=== PATIENT | female | born 1980 | race Two or more races ===

== ENCOUNTER 2019-04-26 16:40 | Emergency (ER) | payer SELFPAY ==
[2019-04-26 17:02] VITALS: BP 114/75
--- NOTE | 2019-04-26 17:39 | UC ---
Abdominal Pain Female HPI - HPI Summary HPI Summary: 38 year old female presents with abdominal pain, right sided, radiating to spine. Patient has been seen in past with similar symptoms in 2012- was dx'd with ARF with creatinine of >4, patient states she required dialysis at that time. Notes diffuse fatigue, weakness x weeks, right sided headache. + nausea, decreased appetite. Intermittent bouts of chest pain, short lived, none currently/ recently. No medications typically, but took meprazole last night. continues to have RUQ pain only, no other abdominal pain, no pain with defecation. RUQ radiates to back/ flank area, feels like "blaire" going up spine. + tremors starting several weeks ago, intermittent, worse in the AM and when fatigued, b/l hands. no other PMH. Has seen providers for abdominal pain in past, but without official diagnosis. Was sent to ER today for evaluation from her PCP due to stools. - History of Current Complaint Chief Complaint: UCGeneralIllness Stated Complaint: RIGHT SIDE PAIN Time Seen by Provider: 04/26/19 17:17 Hx Obtained From: Patient, Family/Learning And Development Specialist - friend Hx Last Menstrual Period: 2 WEEKS AGO ?: No Onset/Duration: Sudden Onset, Lasting Weeks, Still Present Severity Initially: Moderate Severity Currently: Moderate Pain Intensity: 8 Pain Scale Used: 0-10 Numeric Location: Discrete At: RUQ Radiates: Yes Radiates to: Back, Flank - right Character: Colicy, Cramping, Sharp Aggravating Factor(s): Food Alleviating Factor(s): Nothing Associated Signs and Symptoms: Positive: Chest Pain, Back Pain, Blood in Stool - black stools, Nausea, Diarrhea. Negative: Diaphoresis, Fever, Cough, Constipation, Urinary Symptoms, Decreased Appetite, Vaginal Discharge, Vomiting Allergies/Adverse Reactions: Allergies Allergy/AdvReac Type Severity Reaction Status Date / Time Penicillins Allergy Severe Rash Verified 04/26/19 17:03 Home Medications: Home Medications Omeprazole 20 mg PO BID 04/26/19 [History Confirmed 04/26/19] PMH/Surg Hx/FS Hx/Imm Hx Previously Healthy: No - h/o renal failure 2012 - Surgical History Surgical History: Unable to Obtain/Confirm - Family History Known Family History: Positive: Non-Contributory - Social History Alcohol Use: Occasionally Substance Use Type: None Smoking Status (MU): Never Smoked Tobacco Review of Systems All Other Systems Reviewed And Are Negative: Yes Constitutional: Positive: Fatigue Cardiovascular: Positive: Chest Pain - intermittent, none currently. Motor: Positive: Weakness Musculoskeletal: Positive: Myalgia Neurological: Positive: Headache Is Patient Immunocompromised?: No Physical Exam Triage Information Reviewed: Yes Appearance: Well-Appearing, No Pain Distress, Well-Nourished Vital Signs: Initial Vital Signs Temp 98.3 F 04/26/19 16:51 Pulse 82 04/26/19 16:51 Resp 16 04/26/19 16:51 BP 114/75 04/26/19 16:51 Pulse Ox 99 04/26/19 16:51 Vital Signs Reviewed: Yes Eyes: Positive: Conjunctiva Clear ENT: Positive: Hearing grossly normal Neck: Positive: Supple, Nontender, No Lymphadenopathy Abdomen Description: Positive: No Organomegaly, Soft, CVA Tenderness (R), Other : - Rright flank pain. Negative: CVA Tenderness (L), Distended, Guarding, Splenomegaly Psychological Exam: Normal Skin Exam: Normal Abd Pain Female Course/Dx - Course Course Of Treatment: 38 year old femae with long standing history of RUQ pain, worse over past few weeks with tarry stools x weeks, fatigue. Concerned for GI bleed, in past had elevated creatinine with similar symptoms- Patient needs blood work, possible imaging tonight, she was sent to ER for further evaluation. Offered ambulance, patient refused. ER called with report - Differential Dx/Diagnosis Differential Diagnosis: Abdominal Aortic Aneurysm, Appendicitis, Urinary Tract Infection Provider Diagnosis: Abdominal pain Discharge - Sign-Out/Discharge Documenting (check all that apply): Patient Departure All imaging exams completed and their final reports reviewed: No Studies - Discharge Plan Condition: Good Disposition: HOME-RECOMMEND TO ED Patient Education Materials: Acute Abdominal Pain (ED) Referrals: Madonna Chapin PA [Primary Care Provider] - Additional Instructions: - Please go to ER due to abdominal pain with history of renal failure in past - Billing Disposition and Condition Condition: GOOD Disposition: Home-Recommend to ED
== END 2019-04-26 17:55 | disposition home health service (06) ==
LOC: UCEAST 16:40
DX: R10.9 Unspecified abdominal pain (principal); R53.83 Other fatigue; R51 Headache; Z88.0 Allergy status to penicillin
CPT/HCPCS: 99202; G0463

== ENCOUNTER → 2019-04-26 18:05 | Emergency (ER) | payer SELFPAY ==
[~2019-04-26 18:05] MED LIST: Ondansetron INJ* 2 MG/ML VIAL IV ONE; Pantoprazole IV* 40 MG IV ONE
--- NOTE | 2019-04-26 18:42 | ED ---
GI/ HPI - HPI Summary HPI Summary: 38-year-old female presents with black stool for past 3 days. She states that she has had right upper quadrant pain for the past couple years. She was evaluated in 2012 for this and admitted for renal failure. She states the pain has continued since. She has not been using ibuprofen. She does drink alcohol occasionally. She has never had a history of blood stool. States that her stool have been a little bit loose. Denies any recent travel. admits to nausea and no vomiting. Was suppose to be on Prilosec but stopped taking it but did take a dose two days ago. no urinary symptoms. pain does radiate to back and right shoulder. admits to fatigue. no chest pain or sob. no urinary symptoms. Has no primary. - History of Current Complaint Chief Complaint: EDAbdPain Time Seen by Provider: 04/26/19 18:24 Stated Complaint: ABD PAIN PER PT Hx Last Menstrual Period: 2 WEEKS AGO Pain Intensity: 8 - Allergy/Home Medications Allergies/Adverse Reactions: Allergies Allergy/AdvReac Type Severity Reaction Status Date / Time Penicillins Allergy Severe Rash Verified 04/26/19 17:03 PMH/Surg Hx/FS Hx/Imm Hx Endocrine/Hematology History: Denies: Hx Anticoagulant Therapy Respiratory History: Reports: Hx Asthma Infectious Disease History: No Infectious Disease History: Denies: Traveled Outside the [place] in Last 30 Days - Family History Known Family History: Positive: Non-Contributory - Social History Alcohol Use: Occasionally Substance Use Type: Reports: None Smoking Status (MU): Never Smoked Tobacco Review of Systems Negative: Fever Negative: Chest Pain Negative: Shortness Of Breath Positive: Abdominal Pain, Nausea, Other - dark stool All Other Systems Reviewed And Are Negative: Yes Physical Exam Triage Information Reviewed: Yes Vital Signs On Initial Exam: Initial Vitals Temp Pulse Resp BP Pulse Ox 98.3 F 69 15 140/86 98 04/26/19 18:07 04/26/19 18:07 04/26/19 18:07 04/26/19 18:07 04/26/19 18:07 Vital Signs Reviewed: Yes Appearance: Positive: Well-Appearing Skin: Positive: Warm, Dry Head/Face: Positive: Normal Head/Face Inspection Eyes: Positive: Normal, Conjunctiva Clear ENT: Positive: Pharynx normal Respiratory/Lung Sounds: Positive: Clear to Auscultation, Breath Sounds Present Cardiovascular: Positive: Normal, RRR Abdomen Description: Positive: Soft, Other: - tenderness in RUQ Bowel Sounds: Positive: Present Musculoskeletal: Positive: Normal Neurological: Positive: Normal Psychiatric: Positive: Normal Diagnostics - Vital Signs Vital Signs Temp Pulse Resp BP Pulse Ox 04/26/19 18:07 98.3 F 69 15 140/86 98 - Laboratory Result Diagrams: 04/26/19 18:49 04/26/19 18:49 Lab Statement: Any lab studies that have been ordered have been reviewed, and results considered in the medical decision making process. - Ultrasound No standard instances Ultrasound Interpretation Completed By: Radiologist Summary of Ultrasound Findings: IMPRESSION: 1. No acute findings. No shadowing gallstones. 2. Possible nonobstructing calculus at lower pole of the right kidney. No. hydronephrosis. 3. Mild prominence of the pancreatic duct measuring 1.6 mm.The pancreatic tail. is obscured by bowel gas. Remainder of the gland is normal in appearance. Re-Evaluation - Re-Evaluation First Eval Re-Evaluation Time: 20:18 Change: Improved Comment: feeling better GIGU Course/Dx - Course Course Of Treatment: 38-year-old female presents with black stool for past 3 days. She states that she has had right upper quadrant pain for the past couple years. She was evaluated in 2012 for this and admitted for renal failure. She states the pain has continued since. She has not been using ibuprofen. She does drink alcohol occasionally. She has never had a history of blood stool. States that her stool have been a little bit loose. Denies any recent travel. admits to nausea and no vomiting. Was suppose to be on Prilosec but stopped taking it but did take a dose two days ago. no urinary symptoms. pain does radiate to back and right shoulder. admits to fatigue. no chest pain or sob. no urinary symptoms. Has no primary. on exam tenderness in RUQ. no rebound. no flank pain. wbc normal. h/h normal. lft normal. kidney function normal. crp normal. stool occult blood neg. gave dose of protonix and zofran and less nausous. gallbladder u/s shows no acute findings. will have follow up with GI and restart omeprazole and start carafate. patient understand and agrees with plan. - Diagnoses Differential Diagnoses - Female: Cholecystitis, Gastritis, Urinary Tract Infection Provider Diagnoses: Epigastric pain Discharge - Sign-Out/Discharge Documenting (check all that apply): Patient Departure Patient Received Moderate/Deep Sedation with Procedure: No - Discharge Plan Condition: Good Disposition: HOME Prescriptions: Omeprazole CAP (NF) [Prilosec CAP* 20 MG] 20 mg PO DAILY #14 cap. Ondansetron ODT TAB* [Zofran 4 MG Odt TAB*] 4 mg PO Q6H PRN #20 tab.odt PRN Reason: Nausea Sucralfate TAB* [Carafate*] 1 gm PO TID #84 tab Patient Education Materials: Epigastric Pain (ED) Print Language: KHMER Referrals: Sunni Velasquez MD [Medical Doctor] - Madonna Chapin PA [Primary Care Provider] - Additional Instructions: Take omeprazole once a day for 2 weeks Take carafate three times a day for 4 weeks Take Zofran every 6 hours as needed for nausea Avoid acidic foods follow up with GI Return to ED if develop any new or worsening symptoms - Billing Disposition and Condition Condition: GOOD Disposition: Home - Attestation Statements Provider Attestation: I am administratively signing this document. I was available for consultation for this patient. I did not evaluate the patient, did not have a doctor/patient relationship with the patient, or participate in any medical decision making or disposition decisions unless I am specifically named in the chart as having consulted on the patient. If I have consulted on the patient, please see my own ED note on the patient encounter. Yuri Araujo MD
[2019-04-26 19:03] LABS: ABS Eosinophils 0.1 10^3/ul (0-0.6); ABS Lymphocytes 1.7 10^3/ul (1.0-4.8); ABS Monocytes 0.4 10^3/ul (0-0.8); ABS Neutrophils 3.8 10^3/ul (1.5-7.7); Hematocrit 39 % (35-47); Lymphocyte % 28.7 %; Mean Corpuscular HGB Conc 36 g/dL (31-36); Mean Corpuscular Hemoglobin 33 pg (27-31); Mean Corpuscular Volume 93 fL (80-97); Mean Platelet Volume 6.9 fL (7.4-10.4); Nucleated Red Blood Cells % 0.1; Platelet Count 251 10^3/uL (150-450); Red Blood Count 4.19 10^6 /uL (3.70-4.87); Red Cell Distribution Width 13 % (10-15)
[2019-04-26 19:14] LABS: ALT 22 U/L (7-52); AST 18 U/L (13-39); Albumin 4.3 g/dL (3.2-5.2); Albumin/Globulin Ratio 1.5 (1-3); Alkaline Phosphatase 79 U/L (34-104); Amylase 31 U/L (29-103); Anion Gap 8 mmol/L (2-11); BUN/Creatinine Ratio 10.6 (8-20); Blood Urea Nitrogen 7 mg/dL (6-24); C Reactive Protein 7.21 mg/L (<8.01); CO2 Carbon Dioxide 26 mmol/L (22-32); Calcium 9.3 mg/dL (8.6-10.3); Chloride 105 mmol/L (101-111); EGFR African American 121.9 (>60); EGFR Non-African American 100.8 (>60); Globulin 2.9 g/dL (2-4); Glucose 101 mg/dL (70-100); Magnesium 2.2 mg/dL (1.9-2.7); Potassium 3.7 mmol/L (3.5-5.0); Sodium 139 mmol/L (135-145); Total Protein 7.2 g/dL (6.4-8.9)
[2019-04-26 19:19] LABS: HCG Pregnancy < 0.60 mIU/mL
--- OUTSIDE RECORDS SUMMARY | 2019-04-26 19:34 | XMS REPORT ---
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 Active 22377830 region Problem Hx of renal Z87.448 Active 21659867443339 insufficiency syndrome Problem Acute midline M54.6 Active 450480802 thoracic back pain ALLERGIES No Information ENCOUNTERS Encounter Location Date Diagnosis [place] [address] [place], [place] [address] Facilitated Enrollment [address] [place] Oct, [place] [address] Sep, [place] [address] Sep, [place] [address] Facilitated Enrollment UNKNOWN Sep, - [place] Facilitated Enrollment UNKNOWN Sep, - [place] Facilitated Enrollment [address] [place] Aug, [place] [address] Facilitated Enrollment UNKNOWN Aug, - [place] [facility] [address], [facility] [address] [place], [place] [id number] Case [facility] [address] Prashanth [place], [place] [address] Facilitated Enrollment UNKNOWN Feb, - [place] [facility] [address] Feb, Midline thoracic back pain, [address] [place], [place] unspecified chronicity [id number] M54.6 and Lordosis M40.50 [facility] [address] Feb, Acute midline thoracic back [facility] [address] [place], [place] pain M54.6 ; Hx of renal 775700917 insufficiency syndrome Z87.448 ; Gastroesophageal reflux disease with esophagitis K21.0 and Lordosis of lumbar region M40.56 Facilitated Enrollment UNKNOWN Dec, - [place] [address] [address] [place], [facility] [place] [address] [place], [facility] [place] [address] Facilitated Enrollment UNKNOWN Mar, - [place] Facilitated Enrollment UNKNOWN Mar, - [facility] [address] Sep, [address] [place], [place] [id number] [place] [address] [address] [place] Aug, [facility] [place] [address] Facilitated Enrollment UNKNOWN Mar, - [facility] Facilitated Enrollment UNKNOWN Mar, - [facility] Facilitated Enrollment UNKNOWN Mar, - [facility] [address] Feb, [address] [place], [place] [id number] [place] [facility] [address] Feb, Unspecified abdominal pain [facility] [address] [place], [place] R10.9 and H/O renal 536538103 insufficiency syndrome Z87.448 [facility] [address] Nov, [address] [place] [id number] Facilitated Enrollment UNKNOWN Aug, - [facility] [place] [address] [address] [place], [facility] [place] [address] [place] [address] [address] [place], [facility] [place] [address] Prashanth Aguilar [address] Feb, Health [facility] [place] [address] [place] [address] [address] [place] Feb, Pyelonephritis 590.80 ; [facility] [place] [address] History of renal insufficiency syndrome V13.09 and History of pyelonephritis V13.02 Facilitated Enrollment UNKNOWN January, - [facility] [address] Dec, CHEST PAIN NOS 786.50 [address] [place] [place] [id number] [facility] [address] Oct, ACUTE URI NOS 465.9 [address] [place] [id number] [facility] [address] [facility] Aug, [place] [address] [place] [facility] [address] Apr, [facility] [address] [place], [place] [id number] [address] [place], [place] [address] Feb, [place] [address] Feb, [place] [address] Feb, [place] [address] January, [place] [address] Case Management [address] [place], [place] [address] Case Management [address] [place], [place] [address] Jun, [place] [address] Feb, [place] [address] [place] [facility] [address] Feb, [facility] [address] [place], [place] [id number] [address] Feb, [place] [address] [facility] [address] January, [address] [place], [place] [id number] [facility] [address] January, ALLERGIC RHINITIS NOS 477.9 [address] [place], [place] [id number] [place] [facility] [address] January, [facility] [address] [place], [place] [id number] [place] [facility] [address] Dec, [facility] [address] [place], [place] [id number] [address] Nov, [place] [address] [place] [facility] [address] Nov, Pharyngitis NOS 462 [facility] [address] [place], [place] [id number] Case Management [address] [place], [place] [address] [facility] [address] [facility] 08 Oct, 2012 [place] [address] [facility] [address] Oct, [address] [place], [place] [id number] [place] [facility] [address] Sep, Abdominal pain, left lower [facility] [address] [place], [place] quadrant 789.04 and [id number] Irregular bleeding NOS 626.4 [place] Vasquez [facility] [address] Apr, [facility] [address] [place], [place] [id number] [facility] [address] Apr, [address] [place], [place] [id number] [facility] Management [address] [place], [place] [address] Case Management [address] [place], [place] [address] [facility] [address] Apr, [address] [place], [place] [id number] [place] Vasquez [facility] [address] Apr, Abdominal pain, right upper [facility] [address] [place], [place] quadrant 789.01 ; Pain in [id number] joint, shoulder region 719.41 and Gastritis, other, specified, without mention of hemorrhage 535.40 [facility] [address] [place] [address] Rd [address] [place], Renal insufficiency [address] [place], [place] syndrome NOS [id number] [place], [place] [address] [place], Nephrolithiasis NOS 592.0 [place] [address] Case Management [address] [place], [place] [address] [place], Abdominal pain, [place] [address] quadrant 789.01 Case Management [address] [place], [place] [address] King Ge Vasquez [address] [place] [address] Rd [address] [place], Back pain 724.5 and Renal [facility] [address] [place], [place] insufficiency syndrome NOS [id number] 586 [place] Vasquez [facility] [address] January, [facility] [address] [place], [place] [id number] Case Management [address] [place], [place] [address] King Ge Vasquez [facility] [address] Nov, Anxiety state, unspecified [facility] [address] [place], [place] 300.00 [id number] [place] Vasquez [facility] [address] Sep, Renal insufficiency [facility] [address] [place], [place] syndrome NOS 586 ; [id number] Pyelonephritis NOS 590.80 ; Disturbance of skin sensation 782.0 and Abdominal pain, unspecified site [address]89.[address] Sep, [place] [address] [facility] [address] Sep, [address] [place], [place] [id number] King Ge Vasquez [address] Sep, 2011 Pyelonephritis NOS 590.80 ; [facility] [address] [place], [place] Disturbance of skin 195712899 sensation 782.0 and Bleeding unrelated to menstrual cycle 626.6 [place] Vasquez [address] Dec, Headache 784.0 [facility] [address] [place], [place] [id number] [place] [facility] [address] [place], [place] [address] [place], [place] [address] Case Management [address] [place], [place] [address] [facility] [address] [place], Feb, Urolithiasis 592.9 [place] [address] Urinary tract infection NOS 599.0 [place] [id number] [place], [place] [address] [facility] [address] [place], [place] [address] [place], [place] [address] [place], [place] [address] Sep, [place] [address] [facility] [address] [place], [place] [address] IMMUNIZATIONS No Known Immunizations SOCIAL HISTORY Never Assessed REASON FOR REFERRAL FUNCTIONAL STATUS PLAN OF CARE VITAL SIGNS MEDICATIONS Unknown Medications PROCEDURES No Known procedures RESULTS No Results REASON FOR VISIT 2nd no show Insurance Providers [facility] Patient Patient Patient Patient Patient Subscriber Subscriber Subscriber Group Insurance Plan Plan Plan Plan ID Relationship Address Phone Name Date of ID Name Date of No Type Insurance Insurance Insurance Coverage to Subscriber Address Phone Name Dates [facility] Slide [phone] FORMERLY [facility] Slide self Yemira [id number] [address] D Prashanth Aguilar [address] [facility] [address] [place] [address] [facility] 15 [facility] Slide [phone] [facility] Slide self Yemira [id number] [id number] C D [facility] [place] 02 C D [facility] [place] [address] [place] [address] [address] [place] Case Man [phone] Case Man self Yemira [id number] [facility] [place] [facility] [facility] [address] [employer] Voucher Voucher Case [phone] Case self Yemira [id number] [phone] Management [place] Management [facility] [address] Community [place] Slide FP A [phone] Slide FP A self Yemira [id number] [place] [address] [place] [address] [place] Seasonal [phone] Seasonal self Yemira [id number] M25 D35 [place] M25 D35 [facility] [address] [place] [facility] Slide [phone] [facility] Slide self Yemira [id number] [phone] E Family [place] [address] Planning [place] 80 percent 80 percent [facility] Slide [phone] [facility] Slide self Yemira [id number] C D Family [place] 02 C [place] [address] Planning 0 [place] MEDICAL (GENERAL) HISTORY Type Description Date Medical History pyleonephritis Medical History acute renal insufficiency 2011 from Medical History IUD Medical History History of renal insufficiency syndrome Medical History History of pyelonephritis Medical History History of renal insufficiency syndrome Medical History History of pyelonephritis Hospitalization History abdominal pain to r/o appy Hospitalization History acute renal insufficiency secondary to NSAID use 2011 (creatinine=4) and R pyelonephritis
[2019-04-26 21:30] VITALS: BP 142/92
== END | disposition home or self-care (01) ==
LOC: ED 18:05
DX: R10.13 Epigastric pain (principal); R10.11 Right upper quadrant pain; K92.1 Melena; R11.0 Nausea; R53.83 Other fatigue; Z88.0 Allergy status to penicillin
CPT/HCPCS: 36415; 76705; 80053; 82150; 82272; 83605; 83690; 83735; 84702; 85025; 86140; 96374; 96375; 99283; J2405